=== PATIENT | female | born 1970 | race Caucasian/White ===

== ENCOUNTER 2017-08-20 21:34 | Inpatient (IN) | payer OTHER ==
[~2017-08-20] VITALS: Ht 177.8 cm; Wt 95.4 kg
[~2017-08-20 21:34] MED LIST: CELEBREX100 MG PO; IRON325 M1 PO; LEXAPRO20 MG PO; RANITIDINE HCL150 M1 PO; TRAMADOL HCL50 MG PO
[2017-08-21 06:16] VITALS: BP 127/82
[2017-08-21 10:10] LABS: HEMATOCRIT 37.6 % (36.0-46.0); MCV 92.4 FL (83-99)
[2017-08-21 12:13] VITALS: BP 108/67
[2017-08-21 16:30] VITALS: BP 163/75
[2017-08-21 20:16] VITALS: BP 119/69
[2017-08-21 23:51] VITALS: BP 104/64
[2017-08-22 04:08] VITALS: BP 134/71
[2017-08-22 08:10] VITALS: BP 118/67
[2017-08-22 10:08] LABS: HEMATOCRIT 31.8 % (36.0-46.0); MCV 92.2 FL (83-99)
[2017-08-22 16:23] VITALS: BP 113/55
[2017-08-22 23:32] VITALS: BP 116/56
[2017-08-23 08:12] VITALS: BP 120/72
[2017-08-23] MEDS ORDERED: BENADRYL25 MG PO (09:23)
[2017-08-23] MEDS ORDERED: BISAC-EVAC10 MG PR (09:24)
[2017-08-23] MEDS ORDERED: ELIQUIS2.5 MG PO (09:25)
[2017-08-23] MEDS ORDERED: OXYCODONE HCL5 MG PO (09:25)
[2017-08-23 16:16] VITALS: BP 137/76
== END 2017-08-23 17:13 | disposition home or self-care (01) | DRG 470 ==
LOC: 2SOUTH → ENRESERV 21:34 → 2SOUTH 08-21 05:32 → ENRESERV 08-21 08:53 → 3EAST 08-21 10:49 → 2SOUTH 08-21 11:24 → 3EAST 08-23 17:13
PROVIDERS: Orthopaedic Surgery
PROC: 0SR903A Replacement of Right Hip Joint with Ceramic Synthetic Substitute, Uncemented, Open Approach (ICD-10-PCS; principal; 2017-08-21)
DX: M16.11 Unilateral primary osteoarthritis, right hip (principal); M87.9 Osteonecrosis, unspecified; Z83.3 Family history of diabetes mellitus; Z82.49 Family history of ischemic heart disease and other diseases of the circulatory system
CPT/HCPCS: 85014; 85018; 97530 GO; J0131; J0690; J1100; J1885; J2250; J2405; J2704; J3010; J7050; J7120; Q0175; S0020